=== PATIENT | male | born 1980 | race Caucasian/White ===

== ENCOUNTER 2020-12-17 18:38 | Emergency (ER) | payer OTHER ==
[~2020-12-17] VITALS: Ht 175.3 cm; Wt 68.0 kg
== END 2020-12-17 21:08 ==
LOC: ER 18:38
DX: S82.401B Unspecified fracture of shaft of right fibula, initial encounter for open fracture type I or II (principal); S82.201B Unspecified fracture of shaft of right tibia, initial encounter for open fracture type I or II; S01.81XA Laceration without foreign body of other part of head, initial encounter; I46.8 Cardiac arrest due to other underlying condition; V03.99XA Pedestrian with other conveyance injured in collision with car, pick-up truck or van, unspecified whether traffic or nontraffic accident, initial encounter
CPT/HCPCS: 92950; 99285-25